=== PATIENT | female | born 1970 | race Caucasian/White ===

== ENCOUNTER → 2021-01-16 | Outpatient (CLI) | payer OTHER ==
[~2021-01-16] MED LIST: IBUPROFEN400 MG PO; NORCO 5-325 TA1 EACH PO; PROAIR HFA8.5 GM INH; QVAR INH; VIBRAMYCIN100 MG PO; VITAMIN D31000 UNI1 PO
== END ==
LOC: KOH-I 15:44
DX: J44.1 Chronic obstructive pulmonary disease with (acute) exacerbation (principal)
CPT/HCPCS: 71046